=== PATIENT | male | born 1980 | race Caucasian/White ===

== ENCOUNTER → 2019-02-06 | Outpatient (CLI) | payer OTHER ==
--- NOTE | 2019-02-15 12:41 | SLEEP ---
[address] [address] SLEEP STUDY REPORT Name: EARL RICHTER Room: [facility]#: [id number] Admission: 02/06/19 Attend Phys: Ed Clifton Discharge: Date of : 76 Report #: [id number] THIS REPORT FOR: //name// CC: Shannon Kothari This study has been reviewed in its entirety by a board certified sleep specialist DATE OF SERVICE: 02/07/2019 HOME SLEEP STUDY ATTENDING PHYSICIAN: Shannon Kothari DO The patient is 38 years old, who weighs 377 pounds with a BMI of 51.1. The patient's [place] score was 13. The patient underwent home sleep study performed at [facility]. Total recording time was 574 minutes. During the night study, the patient had 12 obstructive apneas, no central or mixed apneas, and 49 hypopneas. The patient's apnea-hypopnea index was 6.4 per hour. Supine sleep was not recorded. Nocturnal oximetry study revealed an average oxygen saturation of 91% with lowest of 86%. The 22 minutes were spent at an oxygen saturation less than 90%. Mean heart rate was 77 beats per minute with a maximum of 101 beats per minute. IMPRESSION: 1. 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 2. Mild nocturnal hypoxia secondary to obstructive sleep apnea. RECOMMENDATIONS: 1. The patient has mild sleep apnea; however, the patient is clinically symptomatic with an [place] score of 13 suggesting moderate subjective hypersomnia. If the patient has comorbid conditions, then I would recommend treating the patient's sleep apnea with auto CPAP. Alternative treatment option would include use of oral appliance as recommended by the dentist. 2. Weight loss is strongly advised. 3. Once the patient is optimally treated, then follow up in 4-6 weeks to assess compliance with treatment and to document clinical improvement. 4. Avoid [employer] [place] [address] SLEEP STUDY REPORT Name: EARL RICHTER Room: [facility]#: [id number] Admission: 02/06/19 Attend Phys: Ed Clifton Discharge: Date of : 76 Report #: [id number] 5. Cautioned regarding driving until the patient's hypersomnia is resolved with the above recommendations. <ELECTRONICALLY SIGNED> By: Jordon Naik MD 02/15/19 1241 1809 [id number] Naik MD /nt
== END ==
LOC: M.SLEEPLAB 16:28
DX: G47.33 Obstructive sleep apnea (adult) (pediatric) (principal); E11.9 Type 2 diabetes mellitus without complications; R79.89 Other specified abnormal findings of blood chemistry; E66.01 Morbid (severe) obesity due to excess calories; Z79.4 Long term (current) use of insulin; Z99.89 Dependence on other enabling machines and devices; Z68.43 Body mass index [BMI] 50.0-59.9, adult

== ENCOUNTER → 2019-06-11 | Outpatient (CLI) | payer OTHER ==
--- NOTE | 2019-06-12 20:34 | SLEEP ---
[address] [address] SLEEP STUDY REPORT Name: EARL RICHTER Room: [facility]#: [id number] Admission: 06/11/19 Attend Phys: Ed Clifton Discharge: Date of : 76 Report #: [id number] THIS REPORT FOR: //name// CC: Dr. Shannon Kothari This study has been reviewed in its entirety by a board certified sleep specialist DATE OF SERVICE: 06/11/2019 ATTENDING PHYSICIAN: Dr. Shannon Kothari. The patient is 38 years old who weighs 370 pounds with a BMI of 50.2. The patient's [place] score is 15. The patient was diagnosed with sleep apnea in the past, was referred back for CPAP titration study. During the night study, the patient spent 368 minutes in bed and slept for 256 minutes with a sleep efficiency of 69%. Sleep latency was 19.6 minutes with a REM latency of 94 minutes. Sleep architecture showed increased stage 2 sleep, normal stage 1 sleep, normal slow wave and reduced REM sleep. EKG monitoring revealed an average heart rate of 77 beats per minute. No sustained arrhythmias observed. No clinically significant PLM seen. The patient was started on CPAP at 5 cm of water and titrated up to 15 cm of water. At this final pressure, the patient slept for 92 minutes including 9.5 minutes of REM sleep. The patient had supine sleep as well. The patient's AHI was reduced to 1.9 per hour and oxygen saturation remained above 90%. IMPRESSION: 1. Sleep apnea diagnosed by previous sleep study. 2. No clinically significant periodic limb movements. RECOMMENDATIONS: 1. CPAP at 15 cm of water completely eliminated the patient's sleep apnea and should be used on a nightly basis. 2. Follow up in 4-6 weeks to assess compliance with CPAP and to document clinical improvement. 3. Weight loss is strongly advised. 4. Avoid [employer] [place] [address] SLEEP STUDY REPORT Name: EARL RICHTER Room: [facility]#: [id number] Admission: 06/11/19 Attend Phys: Ed Clifton Discharge: Date of : 76 Report #: [id number] 5. Cautioned regarding driving until symptoms of sleep apnea resolve with the use of CPAP. <ELECTRONICALLY SIGNED> By: Jordon Naik MD 06/12/19 2034 1637 [id number] Naik MD /nt
== END ==
LOC: M.SLEEPLAB 20:46
DX: G47.30 Sleep apnea, unspecified (principal); J96.11 Chronic respiratory failure with hypoxia

== ENCOUNTER 2020-01-23 15:27 | Emergency (ER) | payer OTHER ==
[~2020-01-23] VITALS: Ht 188 cm; Wt 167.8 kg
[2020-01-23] MEDS ORDERED: CITALOPRAM HBR40 MG PO (15:44)
[2020-01-23] MEDS ORDERED: JARDIANCE25 MG PO (15:44)
[2020-01-23] MEDS ORDERED: HUMALOG100 UNIT/1 SUBQ (15:44)
[2020-01-23 16:25] LABS: ABSOLUTE LYMPHOCYTES 0.9 thou/uL (0.8-5.3); ABSOLUTE MONOCYTES 0.4 thou/uL (0.0-1.2); ABSOLUTE NEUTROPHILS 4.2 thou/uL (1.6-8.1); BASOPHILS 0.2 %; EOSINOPHILS 0.1 %; HEMATOCRIT 46.7 % (42.0-52.0); LYMPHOCYTES 16.4 %; MCH 30.4 pg (26.0-34.0); MCHC 34.2 g/dL (28.0-37.0); MONOCYTES 6.7 %; MPV 8.2 fl. (7.2-11.1); NUCLEATED RBCS 0 /100WBC; PLATELET COUNT* 154 thou/uL (150-400); POLYS 76.6 %; RBC 5.25 mil/uL (4.50-6.00); RDW-CV 13.5 % (10.5-14.5); WBC 5.5 thou/uL (4.0-11.0)
[2020-01-23 16:33] LABS: CREATININE 0.9 mg/dL (0.6-1.3); POTASSIUM 3.5 mmol/L (3.5-5.1)
[2020-01-23 16:37] LABS: ALBUMIN 3.1 g/dL (3.4-5.0); TOTAL BILIRUBIN 0.5 mg/dL (<0.1-1.0); TOTAL PROTEIN 7.4 g/dL (6.4-8.2)
[2020-01-23] MEDS ORDERED: PROAIR HFA8.5 GM INH (18:03)
[2020-01-23] MEDS ORDERED: ZPAK PO (18:03)
[2020-01-23 19:05] VITALS: BP 102/50
--- NOTE | 2020-01-25 07:36 | EKG ---
[place] [address] ELECTROCARDIOGRAM REPORT Name: EARL RICHTER Room: [facility]#: [id number] Admission: 01/23/20 Attend Phys: Discharge: 01/23/20 Date of : 76 Date of Service: 01/23/20 1642 Report #: [id number] THIS REPORT FOR: //name// [facility] ED Test Date: 2020-01-23 Test Time: 16:42:17 Pat Name: EARL RICHTER Department: Room: Gender: [employer] Developer: [facility] : 1980 Requested By: Citlaly De León Order Number: [id number] MD: Braden Louie Measurements Intervals [place] Rate: 85 P: 23 [place]: 165 QRS: -13 QRSD: 97 T: 26 QT: 383 QTc: 456 Interpretive Statements Sinus rhythm Baseline wander in lead(s) V3 No previous ECG available for comparison Electronically Signed On 01-25-2020 7:36:11 CDT by Braden Louie [email or web address] <ELECTRONICALLY SIGNED> By: Braden Louie MD, [facility] 01/25/20 0736 41 41 Braden Louie MD, [facility] /EPI
== END 2020-01-23 19:07 | disposition home or self-care (01) ==
LOC: M.ERS 15:27
PROVIDERS: Physician Assistant
DX: J18.9 Pneumonia, unspecified organism (principal); E11.9 Type 2 diabetes mellitus without complications; Z20.828 Contact with and (suspected) exposure to other viral communicable diseases